=== PATIENT | female | born 1960 | race Caucasian/White ===

== ENCOUNTER 2020-07-31 23:12 | Inpatient (IN) | payer OTHER, MEDICAID, SELFPAY ==
[~2020-07-31] VITALS: Ht 154.9 cm; Wt 66.2 kg
[2020-07-31 23:13] VITALS: BP_SYST 120
[2020-08-01] MEDS ORDERED: D5/0.45 NS 1,000 ML IV SCH (01:15)
[2020-08-01] MEDS ORDERED: DIPHENHYDRAMINE INJ 50 MG/ML VIAL IVP PRN (01:15)
[2020-08-01] MEDS ORDERED: IPRATROPIUM/ALBUTEROL SULFATE 3 ML AMPUL.NEB (DUONEB) INH SCH (03:00)
[2020-08-01] MEDS ORDERED: IPRATROPIUM BROM 0.5 MG/2.5 ML VIAL.NEB (ATROVENT) INH SCH (07:00)
[2020-08-01 07:48] LABS: BASOPHILS # (AUTO) 0.1 K/uL (0.0-0.2); BASOPHILS % (AUTO) 0.9 % (0.0-2.0); EOSINOPHILS # (AUTO) 0.3 K/uL (0.0-0.4); EOSINOPHILS % (AUTO) 3.6 % (0.0-4.0); HEMATOCRIT 32.6 % (36-48); LYMPHOCYTES # (AUTO) 2.8 K/uL (1.0-5.5); LYMPHOCYTES % (AUTO) 31.8 % (20.5-51.5); MEAN CORPUSCULAR HEMOGLOBIN 32 pg (27-31); MEAN CORPUSCULAR HGB CONC 34 % (32-36); MEAN CORPUSCULAR VOLUME 95 fL (79.0-98.0); MONOCYTES # (AUTO) 0.8 K/uL (0.0-1.0); MONOCYTES % (AUTO) 9.6 % (1.7-9.3); NEUTROPHILS # (AUTO) 4.8 K/uL (1.8-7.7); NEUTROPHILS % (AUTO) 54.1 % (40.0-70.0); PLATELET COUNT (AUTO) 392 K/uL (130-430); RED BLOOD CELL COUNT(AUTO) 3.42 MIL/uL (4.2-6.2); RED CELL DISTRIBUTION WIDTH 13.4 % (9.0-15.0); WHITE BLOOD COUNT (AUTO) 8.8 K/uL (4.8-10.8)
[2020-08-01 08:16] LABS: ALBUMIN 2.9 g/dL (3.4-4.8); CALCIUM 8.8 mg/dL (8.4-11.0); CREATININE 0.47 mg/dL (0.55-1.30); POTASSIUM 3.5 mmol/L (3.5-5.1); THYROID STIMULATING HORMONE 1.29 uIu/mL (0.36-3.74); TOTAL BILIRUBIN 0.5 mg/dL (0.0-1.0)
[2020-08-01 08:30] VITALS: BP_SYST 126
[2020-08-01] MEDS ORDERED: AZITHROMYCIN 500 MG in NS 250 ML IV SCH (09:00)
[2020-08-01] MEDS ORDERED: DEXAMETHASONE SOD PHOSPHATE 10 MG/ML VIAL IVP SCH (09:00)
[2020-08-01] MEDS ORDERED: ASPIRIN 81 MG TAB.CHEW PO SCH (09:00)
[2020-08-01] MEDS ORDERED: SERTRALINE HCL 50 MG TABLET PO SCH (09:00)
[2020-08-01] MEDS ORDERED: LEVOFLOXACIN 500 MG/D5W 100 ML IV SCH (10:00)
[2020-08-01 11:27] VITALS: BP_SYST 91
[2020-08-01] MEDS ORDERED: ONDANSETRON HCL 4 MG/2 ML VIAL ONE (14:14)
[2020-08-01] MEDS ORDERED: ONDANSETRON HCL 4 MG/2 ML VIAL IM PRN (14:15)
[2020-08-01 15:38] VITALS: BP_SYST 109
[2020-08-01 16:37] VITALS: BP_SYST 128
== END 2020-08-01 17:40 | disposition home health service (06) | DRG 690 ==
LOC: SMU 23:12
PROVIDERS: ADMIT Internal Medicine; ATTEND Internal Medicine
PROC: 05HY33Z Insertion of Infusion Device into Upper Vein, Percutaneous Approach (ICD-10-PCS; principal; 2020-08-01)
DX: N39.0 Urinary tract infection, site not specified (principal); Z16.12 Extended spectrum beta lactamase (ESBL) resistance; Z86.16 Personal history of COVID-19; Z20.822 Contact with and (suspected) exposure to COVID-19; B96.89 Other specified bacterial agents as the cause of diseases classified elsewhere; Z88.0 Allergy status to penicillin; Z88.1 Allergy status to other antibiotic agents; Z88.5 Allergy status to narcotic agent
CPT/HCPCS: 36415; 80053; 80061; 84443-TC; 85025; C1751; J0456; J1100; J1200; J1956; J2405; J7050